=== PATIENT | male | born 1965 | race Two or more races ===

== ENCOUNTER 2022-02-20 22:48 | Inpatient (IN) | payer MEDICARE, MEDICAID ==
[~2022-02-20] VITALS: Ht 172.7 cm; Wt 56.8 kg
[2022-02-20] MEDS ORDERED: SODIUM CHLORIDE 0.9% 1,000 ML IV ONE (23:45)
[2022-02-21 00:23] LABS: HEMATOCRIT. 31.8 % (42.0-52.0); MEAN CORPUSCULAR HEMOGLOBIN 38.9 pg (28.0-32.0); MEAN CORPUSCULAR VOLUME 112.1 fL (80.0-94.0); MEAN PLATELET VOLUME 6.7 fl (7.4-10.4); PLATELET 191 x1000/uL (130-400); RED BLOOD CELL COUNT 2.83 mill/uL (4.7-6.1); RED CELL DISTRIBUTION WIDTH 12.8 % (11.6-14.6)
[2022-02-21 00:28] LABS: CHLORIDE 99 mEq/L (98-107)
[2022-02-21 03:10] LABS: CLARITY URINE CLEAR (CLEAR); COLOR URINE YELLOW (YELLOW); KETONES URINE TRACE (NEGATIVE); LEUKOCYTE ESTERASE URINE NEGATIVE (NEGATIVE); NITRITE URINE NEGATIVE (NEGATIVE); OCCULT BLOOD URINE 2+ (NEGATIVE); PH URINE 5.5 (4.5-8.0); PROTEIN URINE 1+ (NEGATIVE); SPECIFIC GRAVITY URINE 1.018 (1.005-1.030); UROBILINOGEN URINE 0.2 E.U./dL (0.2-1.0)
[2022-02-21] MEDS ORDERED: POTASSIUM CHLORIDE 20MEQ TABLET SR PO ONE (03:30)
[2022-02-21 05:55] LABS: PLATELET ESTIMATE NORMAL
[2022-02-21] MEDS ORDERED: ONDANSETRON HCL 4MG/2ML INJ IV PRN (06:45)
[2022-02-21] MEDS ORDERED: POTASSIUM CHLORIDE 20MEQ TABLET SR PO NR (06:45)
[2022-02-21] MEDS ORDERED: ACETAMINOPHEN 650MG/20.3ML UDC GT PRN (06:45)
[2022-02-21] MEDS ORDERED: LORAZEPAM 2MG/ML CPJ IV PRN (06:45)
[2022-02-21] MEDS: ENOXAPARIN 40MG/0.4ML SYR SUBCUT SCH (09:00)
[2022-02-21 11:30] VITALS: BP 109/75
[2022-02-21 12:00] VITALS: BP 109/75
[2022-02-21 16:00] VITALS: BP 112/78
[2022-02-21] MEDS: DOCUSATE SODIUM 100MG CAPSULE PO PRN (17:17)
[2022-02-21] MEDS: SODIUM CHLORIDE 0.45% 1,000 ML IV SCH ×2 (17:18→23:25)
[2022-02-21] MEDS ORDERED: CHLO25TA2 MT (18:38)
[2022-02-21] MEDS ORDERED: RISP0.5T65 MT (18:38)
[2022-02-21] MEDS ORDERED: BENZ1TAB7 MT (18:38)
[2022-02-21] MEDS ORDERED: KETO15CR2 TP (18:38)
[2022-02-21] MEDS ORDERED: SENN-174 PO (18:38)
[2022-02-21] MEDS ORDERED: LISI20TA31 MT (18:38)
[2022-02-21] MEDS ORDERED: CITA10TA9 MT (18:38)
[2022-02-21] MEDS ORDERED: AMLO10TA80 MT (18:38)
[2022-02-21] MEDS ORDERED: CALC-1011 PO (18:38)
[2022-02-21] MEDS ORDERED: DOCU100T MT (18:38)
[2022-02-21 20:00] VITALS: BP 97/69
[2022-02-21 20:47] LABS: CHLORIDE 102 mEq/L (98-107)
[2022-02-22] VITALS: BP 117/81
[2022-02-22 04:00] VITALS: BP 109/76
[2022-02-22 07:35] VITALS: BP 109/78
[2022-02-22] MEDS: ENOXAPARIN 40MG/0.4ML SYR SUBCUT SCH (08:03)
[2022-02-22] MEDS: DOCUSATE SODIUM 100MG CAPSULE PO PRN (08:03)
[2022-02-22 09:54] LABS: CHLORIDE 101 mEq/L (98-107)
[2022-02-22] MEDS: RISPERIDONE 0.5MG TABLET PO SCH ×2 (11:15→16:06)
[2022-02-22] MEDS: CHLORTHALIDONE 25MG TABLET PO SCH (11:15)
[2022-02-22] MEDS: CITALOPRAM HYDROBROMIDE 10MG TABLET PO SCH (11:16)
[2022-02-22] MEDS: AMLODIPINE 10MG TABLET PO SCH (11:16)
[2022-02-22 12:09] VITALS: BP 111/76
[2022-02-22 15:10] VITALS: BP 116/84
[2022-02-22] MEDS: BENZTROPINE MESYLATE 1MG TABLET PO SCH ×2 (15:11→17:00)
[2022-02-22] MEDS: SODIUM CHLORIDE 0.45% 1,000 ML IV SCH (16:06)
[2022-02-22] MEDS: LISINOPRIL 20MG TABLET PO SCH (16:06)
[2022-02-22 20:00] VITALS: BP 110/76
[2022-02-23] VITALS: BP 109/74
[2022-02-23 02:23] LABS: HEMATOCRIT. 31.4 % (42.0-52.0); MEAN CORPUSCULAR HEMOGLOBIN 39.1 pg (28.0-32.0); MEAN CORPUSCULAR VOLUME 111.2 fL (80.0-94.0); MEAN PLATELET VOLUME 7.2 fl (7.4-10.4); PLATELET 186 x1000/uL (130-400); RED BLOOD CELL COUNT 2.83 mill/uL (4.7-6.1); RED CELL DISTRIBUTION WIDTH 12.7 % (11.6-14.6)
[2022-02-23 02:29] LABS: CHLORIDE 98 mEq/L (98-107)
[2022-02-23 04:00] VITALS: BP 118/82
[2022-02-23] MEDS: SODIUM CHLORIDE 0.45% 1,000 ML IV SCH (08:45)
[2022-02-23] MEDS: CHLORTHALIDONE 25MG TABLET PO SCH ×2 (09:00→09:51)
[2022-02-23] MEDS ORDERED: POTASSIUM CHLORIDE 20MEQ TABLET SR PO NR (09:15)
[2022-02-23] MEDS: LISINOPRIL 20MG TABLET PO SCH ×2 (09:48→16:19)
[2022-02-23] MEDS: ENOXAPARIN 40MG/0.4ML SYR SUBCUT SCH (09:48)
[2022-02-23] MEDS: RISPERIDONE 0.5MG TABLET PO SCH ×2 (09:48→16:19)
[2022-02-23] MEDS: AMLODIPINE 10MG TABLET PO SCH (09:48)
[2022-02-23] MEDS: CITALOPRAM HYDROBROMIDE 10MG TABLET PO SCH (09:48)
[2022-02-23] MEDS: BENZTROPINE MESYLATE 1MG TABLET PO SCH ×2 (09:51→16:19)
[2022-02-23 11:38] VITALS: BP 103/76
[2022-02-23 16:00] VITALS: BP 101/66
[2022-02-23] MEDS: GUAIFENESIN 200MG/10ML SUGAR FREE UDC PO PRN (17:14)
[2022-02-24] MEDS: SODIUM CHLORIDE 0.45% 1,000 ML IV SCH ×2 (01:47→18:05)
[2022-02-24 04:16] LABS: PLATELET ESTIMATE NORMAL
[2022-02-24 08:00] VITALS: BP 115/88
[2022-02-24 08:40] LABS: CHLORIDE 100 mEq/L (98-107)
[2022-02-24] MEDS: CHLORTHALIDONE 25MG TABLET PO SCH (09:00)
[2022-02-24] MEDS: AMLODIPINE 10MG TABLET PO SCH (09:48)
[2022-02-24] MEDS: ENOXAPARIN 40MG/0.4ML SYR SUBCUT SCH (09:48)
[2022-02-24] MEDS: RISPERIDONE 0.5MG TABLET PO SCH ×2 (09:48→16:29)
[2022-02-24] MEDS: CITALOPRAM HYDROBROMIDE 10MG TABLET PO SCH (09:49)
[2022-02-24] MEDS: GUAIFENESIN 200MG/10ML SUGAR FREE UDC PO PRN (09:49)
[2022-02-24] MEDS: LISINOPRIL 20MG TABLET PO SCH ×2 (09:49→16:30)
[2022-02-24] MEDS: BENZTROPINE MESYLATE 1MG TABLET PO SCH ×2 (09:50→16:29)
[2022-02-24] MEDS ORDERED: POTASSIUM CHLORIDE 20MEQ TABLET SR PO NR (10:15)
[2022-02-24 12:00] VITALS: BP 105/76
[2022-02-24 16:00] VITALS: BP 108/68
[2022-02-24 20:00] VITALS: BP 110/78
[2022-02-25] VITALS: BP 118/70
[2022-02-25 04:00] VITALS: BP 102/78
[2022-02-25 08:00] VITALS: BP 119/83
[2022-02-25] MEDS: LISINOPRIL 20MG TABLET PO SCH ×2 (08:22→16:05)
[2022-02-25] MEDS: CHLORTHALIDONE 25MG TABLET PO SCH (08:22)
[2022-02-25] MEDS: AMLODIPINE 10MG TABLET PO SCH (08:22)
[2022-02-25] MEDS: CITALOPRAM HYDROBROMIDE 10MG TABLET PO SCH (08:22)
[2022-02-25] MEDS: BENZTROPINE MESYLATE 1MG TABLET PO SCH ×2 (08:22→16:06)
[2022-02-25] MEDS: RISPERIDONE 0.5MG TABLET PO SCH ×2 (08:22→16:06)
[2022-02-25] MEDS: ENOXAPARIN 40MG/0.4ML SYR SUBCUT SCH (08:23)
[2022-02-25] MEDS: SODIUM CHLORIDE 0.45% 1,000 ML IV SCH (10:59)
[2022-02-25 12:00] VITALS: BP 103/72
[2022-02-25 15:51] VITALS: BP 100/73
[2022-02-25 20:00] VITALS: BP 109/63
[2022-02-25] MEDS ORDERED: POTASSIUM CHLORIDE 20MEQ TABLET SR PO NR (20:30)
[2022-02-26] VITALS: BP 108/73
[2022-02-26 04:00] VITALS: BP 116/65
[2022-02-26] MEDS: SODIUM CHLORIDE 0.45% 1,000 ML IV SCH (05:22)
[2022-02-26 08:00] VITALS: BP 121/87
[2022-02-26] MEDS: ENOXAPARIN 40MG/0.4ML SYR SUBCUT SCH (08:32)
[2022-02-26] MEDS: AMLODIPINE 10MG TABLET PO SCH (08:32)
[2022-02-26] MEDS: LISINOPRIL 20MG TABLET PO SCH (08:33)
[2022-02-26] MEDS: CITALOPRAM HYDROBROMIDE 10MG TABLET PO SCH (08:33)
[2022-02-26] MEDS: CHLORTHALIDONE 25MG TABLET PO SCH (08:33)
[2022-02-26] MEDS: BENZTROPINE MESYLATE 1MG TABLET PO SCH (08:33)
[2022-02-26] MEDS: RISPERIDONE 0.5MG TABLET PO SCH (08:53)
[2022-02-26 09:32] VITALS: BP 121/87
== END 2022-02-26 12:20 | disposition home or self-care (01) | DRG 179 ==
LOC: ER 22:48 → MICUSO 02-21 04:02 → 7EST 02-21 11:35 → 7WST 02-22 17:07
PROVIDERS: ADMIT Hospitalist; ATTEND Hospitalist
DX: U07.1 COVID-19 (principal); E87.6 Hypokalemia; E86.0 Dehydration; D46.9 Myelodysplastic syndrome, unspecified; I10 Essential (primary) hypertension; R26.81 Unsteadiness on feet; W18.30XA Fall on same level, unspecified, initial encounter; Y93.89 Activity, other specified; Y92.89 Other specified places as the place of occurrence of the external cause; Y99.8 Other external cause status
CPT/HCPCS: 36415; 71045; 74176; 80048; 80053; 81003; 83735; 85025; 87426; 99285; C9803; J1650; J7030

== ENCOUNTER 2022-11-28 09:50 | Inpatient (IN) | payer MEDICARE, MEDICAID ==
[~2022-11-28] VITALS: Ht 182.9 cm; Wt 74.4 kg
[~2022-11-28 09:50] MED LIST: AMLO10TA80 MT; BENZ1TAB78 MT; CALC-1011 PO; CHLO25TA2 MT; CITA10TA88 MT; DOCU100T MT; KETO15CR2 TP; LISI20TA31 MT; RISP0.5T65 MT; SENN-174 PO
[2022-11-28] MEDS ORDERED: ONDANSETRON HCL 4MG/2ML INJ IV ONE (12:30)
[2022-11-28 13:03] LABS: HEMATOCRIT. 38.2 % (42.0-52.0); MEAN CORPUSCULAR HEMOGLOBIN 39.3 pg (28.0-32.0); MEAN CORPUSCULAR VOLUME 115.8 fL (80.0-94.0); MEAN PLATELET VOLUME 7.1 fl (7.4-10.4); PLATELET 298 x1000/uL (130-400); RED CELL DISTRIBUTION WIDTH 12.2 % (11.6-14.6)
[2022-11-28 13:11] LABS: CHLORIDE 90 mEq/L (98-107)
[2022-11-28 13:21] LABS: ETHANOL BLOOD < 10 mg/dL
[2022-11-28 13:26] LABS: CLARITY URINE CLEAR (CLEAR); COLOR URINE DARK YELLOW (YELLOW); KETONES URINE 2+ (NEGATIVE); LEUKOCYTE ESTERASE URINE TRACE (NEGATIVE); NITRITE URINE NEGATIVE (NEGATIVE); OCCULT BLOOD URINE NEGATIVE (NEGATIVE); PROTEIN URINE 2+ (NEGATIVE); SPECIFIC GRAVITY URINE 1.023 (1.005-1.030)
[2022-11-28 13:37] LABS: INR 1.2; PROTHROMBIN TIME 12.7 sec (9.6-11.0)
[2022-11-28] MEDS ORDERED: POTASSIUM CHLORIDE INJ 40 MEQ in DEXT 5% WATER 250 ML IV ONE (13:45)
[2022-11-28] MEDS ORDERED: PIPERACILLIN/TAZOBACTAM 3.375GM/50ML PREMIX IV ONE (13:45)
[2022-11-28] MEDS ORDERED: SODIUM CHLORIDE 0.9% 1,000 ML IV ONE (13:45)
[2022-11-28] MEDS ORDERED: PIPERACILLIN/TAZ 3.375G PREMIX 50 ML IV NR (13:45)
[2022-11-28 13:51] LABS: PLATELET ESTIMATE NORMAL
[2022-11-28] MEDS ORDERED: IOHEXOL-300 100 ML BOTTLE ONE (14:01)
[2022-11-28] MEDS ORDERED: DIATR MEGLU/DIATRIZOATE SOLN 120ML ONE (14:01)
[2022-11-28] MEDS: KCL 20MEQ/100ML X 2 FOR TOTAL KCL 40MEQ/200ML IV SCH ×4 (14:09→23:22)
[2022-11-28] MEDS: MORPHINE SULFATE 4 MG/ML CPJ (NOT FOR IM USE) IV NR ×2 (14:51→15:15)
[2022-11-28 15:13] LABS: PHOSPHORUS 2.3 mg/dL (2.5-4.9)
[2022-11-28] MEDS ORDERED: KETOROLAC 15MG/ML VIAL IV PRN (16:15)
[2022-11-28] MEDS ORDERED: PIPERACILLIN/TAZ 3.375G PREMIX 50 ML IV SCH (16:15)
[2022-11-28] MEDS ORDERED: ACETAMINOPHEN 650MG SUPP PR PRN ×2 (16:15)
[2022-11-28] MEDS ORDERED: IPRATROPIUM/ALBUTEROL 0.5-3(2.5)MG/3ML NEB NEB PRN (16:15)
[2022-11-28] MEDS ORDERED: ONDANSETRON HCL 4MG/2ML INJ IV PRN (16:15)
[2022-11-28] MEDS ORDERED: MORPHINE SULFATE 2 MG/ML CPJ (NOT FOR IM USE) IV PRN (16:15)
[2022-11-28] MEDS ORDERED: ALBUTEROL (0.083%) 2.5MG/3ML NEB HHN PRN (16:30)
[2022-11-28] MEDS ORDERED: NALOXONE HCL 0.4MG/ML VIAL IV PRN (16:30)
[2022-11-28] MEDS ORDERED: IPRATROPIUM BROMIDE (0.02%) 0.5MG/2.5ML NEB HHN PRN (16:30)
[2022-11-28] MEDS ORDERED: POTASSIUM CHLORIDE INJ 30 MEQ in DEXT 5%/0.9% NACL 1,000 ML IV SCH (17:00)
[2022-11-28] MEDS ORDERED: POTASSIUM PHOS,M-BASIC-D-BASIC 10 MMOL in DEXT 5% WATER 246.6667 ML IV NR (17:00)
[2022-11-28 17:06] LABS: BG CARBOXYHEMOGLOBIN 0.4 % (0.5-1.5); BG DEOXYHEMOGLOBIN 6.3 % (0.0-5.0); BG FRACTION INSPIRED OXYGEN 21; BG HCO3 ACT 29.2 mmol/L (22.0-26.0); BG METHEMOGLOBIN 0.5 % (0.0-1.5); BG OXYGEN SATURATION 93.6 % (92.0-98.5); BG OXYHEMOGLOBIN 92.8 % (94.0-97.0); BG PCO2 37.2 mmHg (35.0-45.0); BG PH 7.512 (7.350-7.450); BG PO2 64.2 mmHg (75.0-100.0); BG SAMPLE SITE RIGHT RADIAL; BG VENT MODE ROOM AIR
[2022-11-28] MEDS ORDERED: DEXT 5%/0.9% NACL 1,000 ML IV ONE (17:30)
[2022-11-28 17:57] LABS: T4 FREE 1.48 ng/dL (0.76-1.46)
[2022-11-28 18:16] LABS: FOLIC ACID (FOLATE) SERUM 16.6 ng/mL (>5.38)
[2022-11-28] MEDS ORDERED: HYDRALAZINE 20MG/ML VIAL IV PRN (18:30)
[2022-11-28 21:30] VITALS: BP 109/71
[2022-11-28 22:42] LABS: *AMPHETAMINES SCREEN URINE NEGATIVE (NEGATIVE); *BARBITURATES SCREEN URINE NEGATIVE (NEGATIVE); *BENZODIAZEPINES SCREEN URINE NEGATIVE (NEGATIVE); *COCAINE SCREEN URINE NEGATIVE (NEGATIVE); CANNABINOID URINE SCREEN NEGATIVE (NEGATIVE); METHADONE URINE SCREEN NEGATIVE (NEGATIVE); OPIATES URINE SCREEN NEGATIVE (NEGATIVE); PHENCYCLIDINE URINE SCREEN NEGATIVE (NEGATIVE)
[2022-11-28] MEDS: PIPERACILLIN/TAZOBACTAM 3.375G in DEXT 5% WATER 50ML IV SCH (23:22)
[2022-11-29] VITALS (37 sets, daily range): BP systolic 50–115; BP diastolic 25–89
[2022-11-29] MEDS ORDERED: KCL 20MEQ/100ML PREMIX 100 ML IV PRN (01:00)
[2022-11-29 03:47] LABS: INR 1.3; PROTHROMBIN TIME 13.9 sec (9.6-11.0)
[2022-11-29 03:49] LABS: HEMATOCRIT. 34.6 % (42.0-52.0); HEMOGLOBIN. 11.8 g/dL (14.0-18.0); MEAN CORPUSCULAR HEMOGLOBIN 39.3 pg (28.0-32.0); MEAN CORPUSCULAR VOLUME 115.6 fL (80.0-94.0); MEAN PLATELET VOLUME 6.8 fl (7.4-10.4); PLATELET 257 x1000/uL (130-400); RED BLOOD CELL COUNT 2.99 mill/uL (4.7-6.1); RED CELL DISTRIBUTION WIDTH 12.4 % (11.6-14.6)
[2022-11-29 04:22] LABS: CHLORIDE 98 mEq/L (98-107)
[2022-11-29] MEDS: PIPERACILLIN/TAZOBACTAM 3.375G in DEXT 5% WATER 50ML IV SCH ×2 (06:20→22:49)
[2022-11-29] MEDS: PANTOPRAZOLE SODIUM 40 MG/VIAL IV SCH (09:50)
[2022-11-29] MEDS: POTASSIUM CHLORIDE INJ 40 MEQ in DEXT 5% WATER 500 ML IV NR (11:35)
[2022-11-29] MEDS ORDERED: SIMETHICONE 40 MG/0.6 ML 15ML ONE (11:56)
[2022-11-29] MEDS ORDERED: MIDAZOLAM HCL 2 MG/2 ML VIAL ONE ×3 (12:09→13:11)
[2022-11-29] MEDS ORDERED: SUCCINYLCHOLINE CHLORIDE 200MG/10ML IV ONE (12:09)
[2022-11-29] MEDS ORDERED: ROCURONIUM BROMIDE 10MG/ML VIAL 5ML IV ONE ×3 (12:33→14:31)
[2022-11-29] MEDS ORDERED: PHENYLEPHRINE HCL 10 MG/ML 1ML (IV VIAL) IV ONE ×2 (12:46→13:08)
[2022-11-29] MEDS ORDERED: SODIUM CHLORIDE 0.9% 10ML VIAL ONE ×2 (12:46→13:08)
[2022-11-29 13:09] LABS: PLATELET ESTIMATE NORMAL
[2022-11-29] MEDS ORDERED: PHENYLEPHRINE 50 MG in DEXTROSE 5% WATER 250 ML IV NR (13:30)
[2022-11-29] MEDS ORDERED: NOREPINEPHRINE 8 MG in DEXT 5% WATER 250 ML IV NR (13:45)
[2022-11-29] MEDS ORDERED: NOREPINEPHRINE 8 MG in DEXTROSE 5% WATER 250 ML IV SCH (14:00)
[2022-11-29] MEDS ORDERED: MORPHINE SULFATE 4 MG/ML CPJ (NOT FOR IM USE) IV PRN (14:00)
[2022-11-29] MEDS ORDERED: ONDANSETRON HCL 4MG/2ML INJ IV PRN (14:00)
[2022-11-29] MEDS ORDERED: ALBUMIN HUMAN 12.5G/250ML (5%) IV NR (14:30)
[2022-11-29] MEDS ORDERED: PROPOFOL 10MG/ML 100ML 100 ML IV PRN ×2 (15:45→16:45)
[2022-11-29] MEDS ORDERED: FENTANYL CITRATE/PF 50MCG/ML 2ML VIAL IV PRN (15:45)
[2022-11-29] MEDS ORDERED: DEXAMETHASONE 4MG/ML 1ML VIAL ONE (15:46)
[2022-11-29] MEDS ORDERED: ONDANSETRON HCL 4MG/2ML INJ ONE (15:46)
[2022-11-29] MEDS ORDERED: FENTANYL CITRATE/PF 2,500 MCG in SODIUM CHLORIDE 0.9% 200 ML IV PRN (16:45)
[2022-11-29] MEDS ORDERED: FENTANYL 2500MCG/250ML PMX 250 ML IV PRN (16:45)
[2022-11-29 16:53] LABS: BG BASE EXCESS 3.5 mmol/L (-2.0-2.0); BG CARBOXYHEMOGLOBIN 0.7 % (0.5-1.5); BG FRACTION INSPIRED OXYGEN 80; BG HCO3 ACT 25.8 mmol/L (22.0-26.0); BG METHEMOGLOBIN 0.4 % (0.0-1.5); BG OXYHEMOGLOBIN 97.9 % (94.0-97.0); BG PCO2 32.6 mmHg (35.0-45.0); BG PH 7.516 (7.350-7.450); BG PO2 139.3 mmHg (75.0-100.0); BG SAMPLE SITE RIGHT RADIAL; BG TOTAL HEMOGLOBIN 16.1 g/dL (12.0-18.0); BG VENT MODE VENT - AC
[2022-11-29] MEDS: ENOXAPARIN 40MG/0.4ML SYR SUBCUT SCH (18:00)
[2022-11-29] MEDS: IPRATROPIUM/ALBUTEROL 0.5-3(2.5)MG/3ML NEB HHN SCH (21:03)
[2022-11-29 21:30] LABS: CHLORIDE 107 mEq/L (98-107)
[2022-11-29] MEDS ORDERED: SODIUM CHLORIDE 0.9% 500 ML IV ONE (22:00)
[2022-11-29] MEDS: DEXT 5%/0.45% NACL KCL 40MEQ/L 1,000 ML IV SCH (22:47)
[2022-11-29] MEDS: FAMOTIDINE 20MG/2ML VIAL IV SCH (22:59)
[2022-11-30] VITALS (107 sets, daily range): BP systolic 41–134; BP diastolic 20–110
[2022-11-30] MEDS: IPRATROPIUM/ALBUTEROL 0.5-3(2.5)MG/3ML NEB HHN SCH ×2 (02:07→08:36)
[2022-11-30] MEDS ORDERED: ADENOSINE 3 MG/ML 2ML VIAL IV NR ×2 (02:45)
[2022-11-30] MEDS ORDERED: DILTIAZEM HCL 125 MG in DEXT 5% WATER 100 ML IV PRN (03:00)
[2022-11-30] MEDS: DEXT 5%/0.45% NACL KCL 40MEQ/L 1,000 ML IV SCH (03:00)
[2022-11-30] MEDS: POTASSIUM CHLORIDE INJ 40 MEQ in DEXT 5% WATER 500 ML IV NR (03:00)
[2022-11-30] MEDS ORDERED: NOREPINEPHRINE 8 MG in DEXT 5% WATER 242 ML IV PRN ×2 (03:15→05:45)
[2022-11-30] MEDS ORDERED: SODIUM CHLORIDE 0.9% 1,000 ML IV SCH (05:15)
[2022-11-30] MEDS ORDERED: VASOPRESSIN 20 UNIT in SODIUM CHLORIDE 0.9% 99 ML IV PRN (05:15)
[2022-11-30 06:25] LABS: HEMATOCRIT. 38.8 % (42.0-52.0); HEMOGLOBIN. 12.6 g/dL (14.0-18.0); MEAN CORPUSCULAR HEMOGLOBIN 38.3 pg (28.0-32.0); MEAN CORPUSCULAR VOLUME 118.5 fL (80.0-94.0); MEAN PLATELET VOLUME 7.2 fl (7.4-10.4); PLATELET 292 x1000/uL (130-400); RED BLOOD CELL COUNT 3.28 mill/uL (4.7-6.1); RED CELL DISTRIBUTION WIDTH 12.8 % (11.6-14.6)
[2022-11-30] MEDS: PIPERACILLIN/TAZOBACTAM 3.375G in DEXT 5% WATER 50ML IV SCH ×3 (06:30→23:20)
[2022-11-30 06:56] LABS: CHLORIDE 106 mEq/L (98-107)
[2022-11-30 07:03] LABS: CREATINE KINASE MB FRACTION 4.5 ng/mL (0.5-3.6)
[2022-11-30 07:49] LABS: BG BASE EXCESS 0.2 mmol/L (-2.0-2.0); BG CARBOXYHEMOGLOBIN 0.3 % (0.5-1.5); BG DEOXYHEMOGLOBIN 1.1 % (0.0-5.0); BG FRACTION INSPIRED OXYGEN 40; BG METHEMOGLOBIN 0.4 % (0.0-1.5); BG OXYGEN SATURATION 98.9 % (92.0-98.5); BG OXYHEMOGLOBIN 98.2 % (94.0-97.0); BG PCO2 27.8 mmHg (35.0-45.0); BG PH 7.517 (7.350-7.450); BG PO2 152.8 mmHg (75.0-100.0); BG SAMPLE SITE RIGHT RADIAL; BG TOTAL HEMOGLOBIN 12.8 g/dL (12.0-18.0); BG VENT MODE VENT - AC/VC
[2022-11-30] MEDS: FAMOTIDINE 20MG/2ML VIAL IV SCH ×2 (08:50→21:58)
[2022-11-30] MEDS: PANTOPRAZOLE SODIUM 40 MG/VIAL IV SCH (08:50)
[2022-11-30] MEDS: DEXT 5%/0.45% NACL KCL 20MEQ/L 1,000 ML IV SCH ×2 (10:27→20:36)
[2022-11-30 10:47] LABS: PLATELET ESTIMATE NORMAL
[2022-11-30] MEDS ORDERED: LACTATED RINGERS 1,000 ML IV ONE (11:00)
[2022-11-30 12:10] LABS: BG BASE EXCESS 1.6 mmol/L (-2.0-2.0); BG DEOXYHEMOGLOBIN 2.3 % (0.0-5.0); BG FRACTION INSPIRED OXYGEN 30; BG HCO3 ACT 23.5 mmol/L (22.0-26.0); BG METHEMOGLOBIN 0.2 % (0.0-1.5); BG OXYGEN SATURATION 97.7 % (92.0-98.5); BG OXYHEMOGLOBIN 97.5 % (94.0-97.0); BG PH 7.526 (7.350-7.450); BG PO2 93.6 mmHg (75.0-100.0); BG SAMPLE SITE RIGHT RADIAL; BG TOTAL HEMOGLOBIN 12.7 g/dL (12.0-18.0); BG VENT MODE VENT - CPAP
[2022-11-30] MEDS: ENOXAPARIN 40MG/0.4ML SYR SUBCUT SCH (18:17)
[2022-12-01] VITALS (58 sets, daily range): BP systolic 98–129; BP diastolic 64–78
[2022-12-01] MEDS: PIPERACILLIN/TAZOBACTAM 3.375G in DEXT 5% WATER 50ML IV SCH ×3 (05:35→21:35)
[2022-12-01] MEDS: DEXT 5%/0.45% NACL KCL 20MEQ/L 1,000 ML IV SCH ×2 (05:35→16:30)
[2022-12-01 06:19] LABS: HEMATOCRIT. 31.6 % (42.0-52.0); HEMOGLOBIN. 10.7 g/dL (14.0-18.0); MEAN CORPUSCULAR HEMOGLOBIN 39.3 pg (28.0-32.0); MEAN CORPUSCULAR VOLUME 115.9 fL (80.0-94.0); MEAN PLATELET VOLUME 6.9 fl (7.4-10.4); PLATELET 247 x1000/uL (130-400); RED BLOOD CELL COUNT 2.73 mill/uL (4.7-6.1); RED CELL DISTRIBUTION WIDTH 12.2 % (11.6-14.6)
[2022-12-01 08:58] LABS: CHLORIDE 105 mEq/L (98-107)
[2022-12-01] MEDS: FAMOTIDINE 20MG/2ML VIAL IV SCH ×2 (09:29→21:35)
[2022-12-01 10:10] LABS: PLATELET ESTIMATE NORMAL
[2022-12-01] MEDS ORDERED: POTASSIUM CHLORIDE INJ 60 MEQ in DEXT 5% WATER 500 ML IV NR (12:00)
[2022-12-01] MEDS: ENOXAPARIN 40MG/0.4ML SYR SUBCUT SCH (18:27)
[2022-12-02] VITALS (37 sets, daily range): BP systolic 98–133; BP diastolic 64–83
[2022-12-02] MEDS: DEXT 5%/0.45% NACL KCL 20MEQ/L 1,000 ML IV SCH ×3 (01:59→21:05)
[2022-12-02] MEDS: PIPERACILLIN/TAZOBACTAM 3.375G in DEXT 5% WATER 50ML IV SCH ×3 (05:13→21:05)
[2022-12-02 05:44] LABS: HEMATOCRIT. 30.7 % (42.0-52.0); HEMOGLOBIN. 10.5 g/dL (14.0-18.0); MEAN CORPUSCULAR HEMOGLOBIN 39.4 pg (28.0-32.0); MEAN CORPUSCULAR VOLUME 114.5 fL (80.0-94.0); MEAN PLATELET VOLUME 6.9 fl (7.4-10.4); PLATELET 252 x1000/uL (130-400); RED BLOOD CELL COUNT 2.68 mill/uL (4.7-6.1); RED CELL DISTRIBUTION WIDTH 12.7 % (11.6-14.6)
[2022-12-02 05:58] LABS: CHLORIDE 106 mEq/L (98-107)
[2022-12-02 10:01] LABS: PLATELET ESTIMATE NORMAL
[2022-12-02] MEDS ORDERED: POTASSIUM CHLORIDE INJ 60 MEQ in DEXT 5% WATER 500 ML IV NR (10:30)
[2022-12-02] MEDS: FAMOTIDINE 20MG/2ML VIAL IV SCH ×2 (10:31→21:04)
[2022-12-02] MEDS ORDERED: HYDRALAZINE 10 MG in SODIUM CHLORIDE 0.9% 49.5 ML IV PRN (17:15)
[2022-12-02] MEDS: ENOXAPARIN 40MG/0.4ML SYR SUBCUT SCH (18:00)
[2022-12-02] MEDS: MORPHINE SULFATE 2 MG/ML CPJ (NOT FOR IM USE) IV PRN (21:04)
[2022-12-03] VITALS: BP 118/80
[2022-12-03] MEDS: PIPERACILLIN/TAZOBACTAM 3.375G in DEXT 5% WATER 50ML IV SCH ×2 (05:30→13:06)
[2022-12-03 06:49] LABS: HEMATOCRIT. 33.6 % (42.0-52.0); HEMOGLOBIN. 11.3 g/dL (14.0-18.0); MEAN CORPUSCULAR HEMOGLOBIN 38.6 pg (28.0-32.0); MEAN CORPUSCULAR VOLUME 114.9 fL (80.0-94.0); MEAN PLATELET VOLUME 7.1 fl (7.4-10.4); PLATELET 241 x1000/uL (130-400); RED BLOOD CELL COUNT 2.93 mill/uL (4.7-6.1); RED CELL DISTRIBUTION WIDTH 12.9 % (11.6-14.6)
[2022-12-03 07:39] LABS: CHLORIDE 101 mEq/L (98-107)
[2022-12-03 08:00] VITALS: BP 121/83
[2022-12-03] MEDS: DEXT 5%/0.45% NACL KCL 20MEQ/L 1,000 ML IV SCH (08:00)
[2022-12-03] MEDS ORDERED: MORPHINE SULFATE 2 MG/ML CPJ (NOT FOR IM USE) IV ONE (09:00)
[2022-12-03] MEDS: FAMOTIDINE 20MG/2ML VIAL IV SCH (09:13)
[2022-12-03 10:09] LABS: PHOSPHORUS 0.8 mg/dL (2.5-4.9)
[2022-12-03] MEDS ORDERED: DEXT 5% IV ONE (10:30)
[2022-12-03] MEDS ORDERED: WATER IV ONE (10:30)
[2022-12-03] MEDS ORDERED: POTASSIUM PHOS M BASIC D BASIC IV ONE (10:30)
[2022-12-03 12:00] VITALS: BP 118/69
[2022-12-03] MEDS: POTASSIUM PHOS,M-BASIC-D-BASIC 30 MMOL in DEXT 5% WATER 250 ML IV SCH ×2 (12:00→18:03)
[2022-12-03] MEDS ORDERED: LACTULOSE 20G/30ML UDC PO SCH (12:45)
[2022-12-03] MEDS: MORPHINE SULFATE 2 MG/ML CPJ (NOT FOR IM USE) IV PRN (13:06)
[2022-12-03 16:00] VITALS: BP 108/84
[2022-12-03] MEDS ORDERED: LACTULOSE 20G/30ML UDC PO NR (18:00)
[2022-12-03] MEDS: ENOXAPARIN 40MG/0.4ML SYR SUBCUT SCH (18:00)
[2022-12-04 09:26] LABS: PLATELET ESTIMATE NORMAL
== END 2022-12-03 22:58 | DRG 853 ==
LOC: ER 09:50 → SUPCPDRO 16:04 → 7WST 17:37 → EDBEDREQTM 17:39 → EDBEDREQSVC 17:39 → EDBEDREQ 17:39 → CVICU 11-29 16:00 → 6EST 12-02 17:09
PROVIDERS: ADMIT Internal Medicine; ATTEND Internal Medicine
PROC: 0DTN0ZZ Resection of Sigmoid Colon, Open Approach (ICD-10-PCS; principal; 2022-11-29)
PROC: 0D1N0Z4 Bypass Sigmoid Colon to Cutaneous, Open Approach (ICD-10-PCS; 2022-11-29)
PROC: 0DJD8ZZ Inspection of Lower Intestinal Tract, Via Natural or Artificial Opening Endoscopic (ICD-10-PCS; 2022-11-29)
PROC: 5A12012 Performance of Cardiac Output, Single, Manual (ICD-10-PCS; 2022-12-03)
PROC: 0BH17EZ Insertion of Endotracheal Airway into Trachea, Via Natural or Artificial Opening (ICD-10-PCS; 2022-12-03)
DX: A41.9 Sepsis, unspecified organism (principal); J96.90 Respiratory failure, unspecified, unspecified whether with hypoxia or hypercapnia; K55.069 Acute infarction of intestine, part and extent unspecified; K56.2 Volvulus; R65.21 Severe sepsis with septic shock; E83.39 Other disorders of phosphorus metabolism; E83.52 Hypercalcemia; I46.9 Cardiac arrest, cause unspecified; Z20.822 Contact with and (suspected) exposure to COVID-19; E87.6 Hypokalemia; I10 Essential (primary) hypertension; R34 Anuria and oliguria; R62.50 Unspecified lack of expected normal physiological development in childhood; R74.01 Elevation of levels of liver transaminase levels; F03.90 Unspecified dementia, unspecified severity, without behavioral disturbance, psychotic disturbance, mood disturbance, and anxiety; Z79.899 Other long term (current) drug therapy; I95.9 Hypotension, unspecified; D63.8 Anemia in other chronic diseases classified elsewhere; M41.9 Scoliosis, unspecified
CPT/HCPCS: 31500; 36415; 36600; 71045; 74176; 74177; 80048; 80053; 80305; 80320; 81003; 82375; 82553; 82607; 82746; 82805; 82962; 83036; 83540; 83550; 83605; 83735; 84100; 84132; 84145; 84439; 84443; 84478; 84484; 85025; 87070; 87426; 88307; 92950; 93005; 93306; 93970; 94002; 94003; 94640; 99285; C9113; C9803; J0153; J0330; J1100; J1650; J2250; J2270; J2370; J2405; J2543; J2704; J3010; J3480; J3490; J7042; J7060; J7120; L3908; P9041; Q9963; Q9967; G0480